=== PATIENT | female | born 1990 ===

== ENCOUNTER 2016-06-24 21:01 | Inpatient (IN) | payer BC, OTHER ==
[~2016-06-24] VITALS: Ht 175.3 cm; Wt 72.6 kg
--- NOTE | 2016-06-25 03:10 | NUR ---
0280 ADMISSION NOTE : 25 year old, well-nourished, caucasion female admitted ambulatory to room # 309, accompanied by staff [facility], who also gave patient a brief tour of [facility] floor. Patient's gait is fairly steady. Patient responded to nurse's greeting and introduction, with very slurred " Hello" and deep, head nodding movements. Patient's color is pale pink and her skin is warm, very slightly moist and intact. Multiple fresh and healing, various sizes and shades of pink, track sanz noted on inner and outer forearms and hands and inquinal areas. Patient's lung sounds are noted to have a few, fine, scattered wheezes bilateral lungs and active bowel sounds are noted X 4 soft abdominal Quads, per auscultation. Patient states that she doesn't remember just when she had a BM last, " maybe a week or so". Patient is oriented to person, place and her personal situation. Reoriented to day, date and time. Patient is 5 feet and 9 inches and she weighs 160 lbs. Patient denies any allergies or previous medical or psychiatric conditions, however she states that she is " seizure prone, and has a total of 8 seizures, the last seizure occurring " a few weeks ago in [place]. Patient denies any PCP. She states that she is not taking any medications at home and she did not bring any medications with her to [facility]. Vital signs are : 98.4-78-14 O2 Sat 98%, COWS 2. Patient is admitted for 1) Heroin, 2 grams daily IV, taken at this amount for the past year. Last heroin dose was on 06/24/16, 2 grams. Patient has been using heroin for the past 10 years, on/off. 2) Cocaine, 2 grams daily IV, taken at this amount for the past year. Last cocaine dose was on 06/24/16, 1 gram. Patient has been using cocaine for the past 12 years, on/off. 3) Xanax, 4 to 6 mg P.O. daily, taken at this amount for the past year. Last xanax dose was 06/24/16, 4 mg P.O.. Patient has been using xanax for the past 12 years on/off. 4) Ketamine, 1 gram IM, 4 to 5 days pet week. Last dose taken was on 06/24/16, 1/2 gram IM. Patient has been using ketamine for the past 8 years, on/off. Patient is extremely high, having just used these aforementioned drugs around 10 pm on 06/24/16. Patient must be frequently lightly shaken, prompted and aroused to be awake enough to answer admit questions. Admission assessment took significant amount of time, though patient did try to be cooperative, it was extremely difficult to for her to be alert and to keep her eyes open. Patient took some yoplait, juice and water sips, in effort to try and void, however patient was unable to do so. Patient oriented to her room and nurse call light. Bed is locked and in lowest position, padded bed rails are up X 2 and call light within patient's easy reach.
[2016-06-25 04:00] VITALS: BP 106/51
[2016-06-25] MEDS ORDERED: MAG HYDROX/AL HYDROX/SIMETH 30 ML LIQUID UDC PO PRN (05:15)
[2016-06-25] MEDS ORDERED: diphenhydrAMINE 50 MG CAPSULE PO PRN (05:15)
[2016-06-25] MEDS ORDERED: LOPERAMIDE HCL 2 MG CAPSULE PO PRN ×2 (05:15)
[2016-06-25] MEDS ORDERED: LORAZEPAM 2 MG/1 ML VIAL IM PRN (05:15)
[2016-06-25] MEDS ORDERED: DIAZEPAM 5 MG TABLET PO PRN (05:15)
[2016-06-25] MEDS ORDERED: HYDROXYZINE PAMOATE 25 MG CAPSULE PO PRN (05:15)
[2016-06-25] MEDS ORDERED: MAGNESIUM HYDROXIDE 30 ML LIQUID UDC PO PRN (05:15)
[2016-06-25] MEDS ORDERED: THIAMINE HCL 200 MG/2 ML VIAL IM ONE ×2 (05:15→09:00)
[2016-06-25] MEDS ORDERED: DICYCLOMINE HCL 20 MG TABLET PO PRN (05:15)
[2016-06-25] MEDS ORDERED: ONDANSETRON ODT 4 MG TAB.RAPDIS SL PRN (05:15)
[2016-06-25] MEDS ORDERED: ACETAMINOPHEN 325 MG TABLET PO PRN (05:15)
[2016-06-25] MEDS ORDERED: MIRALAX 17 GM POWD.PACK PO PRN (05:15)
[2016-06-25] MEDS ORDERED: PROMETHAZINE HCL 25 MG/1 ML VIAL IM PRN (05:15)
[2016-06-25] MEDS ORDERED: DIAZEPAM 10 MG TABLET PO PRN ×2 (05:15)
--- NOTE | 2016-06-25 06:30 | NUR ---
0630 Patient slept a total of 2.5 hours. Total intake was 400 ml p.o. and she has not voided yet since admission. No stools . No prn medications given. Patient is presently sleeping soundly with eyes closed and deep, regular, unlabored respirations noted at 14. V/S are stable and COWS is 2. Patient is in no obvious distress at this time.
--- NOTE | 2016-06-25 07:40 | NUR ---
START OF SHIFT Pt is a 25 yr old female, AA&Ox3, admitted on 06/25/16 for opiate/Benzo dependence and is on PRN's for s/s of w/d. Pt is full code, regular diet and NKA. Pt reports of Seizure hx. Pt is observed with increase anxiety m/b difficulty staying still. Pt is observed fidgety with fine tremors. Skin is intact, warm and moist to touch. Multiple track kleber are observed on BUE. Pt is c/o generalized pain 4/10 but is able to tolerate pain level at this time. Urine was collected for UDS and urine . Results are pending. Pt is on fall and seizure precautions. Bed kept in low position and locked with side rails up x2 Call light is within reach. Will continue to monitor.
[2016-06-25 08:00] VITALS: BP 98/40
[2016-06-25 08:28] LABS: *URINE HCG, QUAL NEGATIVE (NEGATIVE)
[2016-06-25 08:44] LABS: *AMPHETAMINE, URINE POSITIVE (NEGATIVE); *BARBITURATE, URINE NEGATIVE (NEGATIVE); *CANNABINOID, URINE POSITIVE (NEGATIVE); *COCCAINE, URINE POSITIVE (NEGATIVE); *OPIATE, URINE POSITIVE (NEGATIVE); *PHENCYCLIDINE SCREEN,URINE NEGATIVE (NEGATIVE)
[2016-06-25] MEDS: MULTIVITAMINS,THERAPEUTIC TABLET PO SCH (09:00)
[2016-06-25] MEDS: THIAMINE HCL 100 MG TABLET PO SCH (09:00)
[2016-06-25] MEDS ORDERED: MULTIVITAMINS,THERAPEUTIC TABLET PO SCH (09:00)
[2016-06-25] MEDS: FOLIC ACID 1 MG TABLET PO SCH (09:00)
--- NOTE | 2016-06-25 09:00 | NUR ---
MEDICATION REFUSED Pt refused to take all 0900 medication as scheduled. Pt was educated on medication regime but pt was unable to focus. Will continue to monitor.
[2016-06-25] MEDS ORDERED: TUBERCULIN,PURIF.PROT.DERIV. 5 TU/0.1 ML TEST ID ONE ×2 (09:30→13:00)
[2016-06-25 12:00] VITALS: BP 91/46
[2016-06-25] MEDS ORDERED: LORAZEPAM 1 MG TABLET PO PRN ×2 (12:15)
--- NOTE | 2016-06-25 14:20 | NUR ---
MD COMMUNICATION Pt is c/o muscle spasms and aching. Discussed with Dr. Evans with new order for Robaxin 750mg PO Q8HPRN. New order noted and carried out.
[2016-06-25] MEDS: METHOCARBAMOL 750 MG TABLET PO PRN (14:36)
[2016-06-25] MEDS: IBUPROFEN 400 MG TABLET PO PRN (14:36)
[2016-06-25] MEDS: GABAPENTIN 300 MG CAPSULE PO SCH ×2 (14:36→21:39)
--- NOTE | 2016-06-25 14:36 | NUR ---
PRN MEDICATION GIVEN Pt c/o generalized pain and muscle spasms. Robaxin 750mg PO PRN and Motrin 400mg PO PRN was given as ordered. Medication palmer well. Encouraged increase fluid intake. Will continue to monitor.
[2016-06-25 16:00] VITALS: BP 94/51
--- NOTE | 2016-06-25 16:46 | NUR ---
PRN RE-ASSESSMENT Robaxin PRN and Motrin PRN was effective. Pt denies any pain or discomfort at this time. Will continue to monitor.
[2016-06-25 17:47] LABS: ALANINE AMINOTRANSFERASE 14 U/L (14-59); ALBUMIN 3.3 g/dL (3.4-5.0); ALKALINE PHOSPHATASE 74 U/L (50-136); AMYLASE 27 U/L (25-115); ASPARTATE AMINOTRANSFERASE 12 U/L (15-37); BILIRUBIN,TOTAL 0.7 mg/dL (0.2-1.0); CALCIUM 8.6 mg/dL (8.5-10.1); CARBON DIOXIDE 31 mmol/L (21-32); CHLORIDE 104 mmol/L (98-107); GFR 67 mL/min (>60); GLUCOSE 90 mg/dL (74-106); LIPASE 133 U/L (73-393); MAGNESIUM 1.8 mg/dL (1.8-2.4); POTASSIUM 3.8 mmol/L (3.5-5.1); SODIUM SERUM 142 mmol/L (136-145); TOTAL PROTEIN, SERUM 7.4 g/dL (6.4-8.2); UREA NITROGEN, BLOOD 12 mg/dL (7-18)
[2016-06-25 17:55] LABS: BASOPHILS # (AUTO) 0.1 K/uL (0.0-0.2); BASOPHILS % (AUTO) 0.9 % (0.0-2.0); EOSINOPHILS # (AUTO) 0.4 K/uL (0.0-0.7); EOSINOPHILS % (AUTO) 4.7 % (0.0-7.0); HEMATOCRIT 32.4 % (37.0-47.0); HEMOGLOBIN 10.4 g/dL (12.0-16.0); LYMPHOCYTES # (AUTO) 3.3 K/uL (0.8-4.8); LYMPHOCYTES % (AUTO) 38.6 % (20.5-51.5); MEAN CORPUSCULAR HEMOGLOBIN 24.1 uug (27.0-31.0); MEAN CORPUSCULAR HGB CONC 32 g/dL (32.0-37.0); MEAN CORPUSCULAR VOLUME 75.2 fL (81.0-99.0); MONOCYTES # (AUTO) 0.7 K/uL (0.1-1.30); MONOCYTES % (AUTO) 8.2 % (0.0-11.0); NEUTROPHILS # (AUTO) 3.9 K/uL (1.8-8.9); NEUTROPHILS % (AUTO) 47.6 % (38.5-71.5); PLATELET COUNT (AUTO) 526 K/uL (150-450); RED BLOOD CELL COUNT(AUTO) 4.31 MIL/uL (4.20-5.40); RED CELL DISTRIBUTION WIDTH 15.1 % (11.5-14.5); WHITE BLOOD COUNT (AUTO) 8.4 K/uL (4.0-11.2)
[2016-06-25 17:58] LABS: THYROID STIMULATING HORMONE 0.861 mIU/mL (0.358-3.740)
[2016-06-25 18:10] LABS: ANISOCYTOSIS 1+; HYPOCHROMASIA 1+
[2016-06-25 18:18] LABS: ETHANOL < 3 MG/DL (0-0)
[2016-06-25 18:32] LABS: HIV-1 p24 ANTIGEN NON REACTIVE (NONREACTIVE); HIV-1/2 ANTIBODY NON REACTIVE (NONREACTIVE)
[2016-06-25] MEDS: BUPRENORPHINE HCL 2 MG TAB.SUBL SL PRN ×2 (18:52→22:53)
--- NOTE | 2016-06-25 18:53 | NUR ---
SUBUTEX PRN GIVEN Pt is observed with increase anxiety m/b difficulty staying still. Skin is warm and moist to touch. Fine tremors are seen. Pt is c/o abdominal cramping and generalized muscle aching. COWS score is 13. Subutex 4mg SL PRN was given as ordered. Encouraged increase fluid intake. Will continue to monitor.
--- NOTE | 2016-06-25 19:11 | NUR ---
END OF SHIFT Pt is a 25 yr old female, AA&Ox3, admitted on 06/25/16 for Opiate/Benzo dependence and is on PRN's for s/s of w/d. Pt is full code, regular diet and NKA. Pt reports of Seizure hx. Pt was observed with increase drowsiness during the afternoon. No acute distress noted. Prior to dinner, Pt woke up c/o anxiety and muscle aching. Robaxin PRN and Motrin PRN was given at 1436. Medication was effective. Pt is observed with increase anxiety m/b difficulty staying still at this time. Skin is warm and moist to touch. Fine tremors are seen. Pt is c/o abdominal cramping and generalized muscle aching. COWS score is 13 and CIWA score was 8. Subutex 4mg SL PRN was given at 1852. Endorsed to shift supervisor melting nurse to continue to monitor. Encouraged increase fluid intake. Pt is on fall and seizure precautions. Bed kept in low position and locked with side rails up x2 Call light is within reach.
[2016-06-25 20:00] VITALS: BP 107/61
--- NOTE | 2016-06-25 20:00 | NUR ---
1999 Patient received awake, alert and getting ready to go downstairs to [facility] for cigarette smoke. Patient has just returned to her room # 309 from [facility] in recreation room. Gait is steady. Patient's color is pale pink and her skin is warm, very slightly moist and intact. Various sized, various shades of pink, new-looking and healing, track and injection sanz and skin lumps noted on bilateral arms, bilateral groins, hands and right neck. Patient returns nurse's greeting with, " Hi, thank you for choosing me tonight". Patient is oriented to person, place, day and her personal situation. Reoriented to date and time. Patient's lung sounds have few, fine scattered wheezes noted bilaterally per auscultation. Patient moves all her extremities fully WNL. Patient states that she has been "trying to get used to everything here" and " do all I can that I'm supposed to". Patient states that she ate and took fluids ad audra today and she has had no real gastric issue so far. Vital signs are: 99-76-18 107/61 O2 sat 100%, COWS 5, CIWA 9. Patient states that she is 'not feeling great right now', but she denies need for any prn medication and feels well enough to go to [facility] to smoke and socialize with other patients. Patient's general appearance is disheveled and her mood/affect is overall emotionally labile. Patient was admitted on 06/25/16 for: Heroin, Cocaine, Xanax and Ketamine withdrawal and she is on Prn Ativan p.o. and Prn Subutex S.L for withdrawal symptoms and CIWA/COWS ordered pertinent parameters. Patient voices no requests at this time. Bed is locked and in lowest position, padded bed rails are up X 2 and call light on patient's bed.
[2016-06-25] MEDS: CLONIDINE HCL 0.1 MG TABLET PO PRN (21:50)
--- NOTE | 2016-06-25 21:50 | NUR ---
PRN MEDICATIONS : Prn Catapres 0.1 mg p.o. given for c/o withdrawal symptoms; hot/cold skin flashes, increasing anxiety and agitation. Prn Vistaril 50 mg p.o. given for extreme anxiety. Patient states, " I'm really starting to kick it".
--- NOTE | 2016-06-25 21:51 | NUR ---
PRN MEDICATION : Prn Ativan 1 mg p.o. given for c/o extreme anxiety, agitation, restless leg and generalized body movements. CIWA 9.
--- NOTE | 2016-06-25 22:50 | NUR ---
REASSESSMENT PRN MEDICATIONS : Patient awake and continuing to be restless, agitated and anxious, but only a little less so, since prn medications given at 2150 and 2150.
--- NOTE | 2016-06-25 22:53 | NUR ---
PRN MEDICATION : Prn Subutex 4 mg S.L. given for extremely restless behavior, agitation and shakey restless, near constant body tossing and turning, and c/o hot/cold skin flashes. COWS 12.
--- NOTE | 2016-06-25 23:53 | NUR ---
REASSESSMENT PRN MEDICATION: Patient awake and continues to toss, turn, be restless, anxious and agitated and periodically shouting out different, unintelligible noises. Nurse gave patient calm reassurances and encouraged patient to ventilate her feelings about whatever patient would like, and nurse then spent some presence time with patient. Patient became quieter after this period of approximately 30 minutes.
[2016-06-26] VITALS: BP 117/68
[2016-06-26] MEDS: IBUPROFEN 400 MG TABLET PO PRN (00:22)
--- NOTE | 2016-06-26 00:22 | NUR ---
PRN MEDICATIONS : Prn Ativan 2 mg p.o. given for c/o withdrawal symptoms; extreme restlessness, anxiety and agitation, restless body tossing and turning. CIWA 15. Prn Motrin 400 mg p.o. for c/o generalized body pain 8/10 pain scale. Prn Benadryl 50 mg p.o. given for sleep.
--- NOTE | 2016-06-26 01:22 | NUR ---
REASSESSMENT PRN MEDICATIONS : Patient remains awake and tossing and turning, anxious, shakey and somewhat agitated, and still shouting unintelligible noises at times. Patient denies any specific pain. She just says to nurse at times, " Well I use a lot, so I'm really kicking".
[2016-06-26 04:00] VITALS: BP 101/66
--- NOTE | 2016-06-26 06:30 | NUR ---
0630 Patient slept a total of 3 hours and she had 4 voids and no stools. Total intake was 1,200 ml p.o. Multiple prn medications given noted separately per floor protocol. V/SS afebrile, COWS 9, CIWA 12. Patient is presently sleeping with eyes closed and quiet, deep, even, unlabored respirations noted at 16. Patient is in no acute discomfort/distress at this time.
--- NOTE | 2016-06-26 07:40 | NUR ---
START OF SHIFT Pt is a 25 yr old female, AA&Ox3, admitted on 06/25/16 for opiate/Benzo dependence and is on PRN's for s/s of w/d. Pt is full code, regular diet and NKA. Pt reports of Seizure hx. Pt received multiple PRN's during the night for s/s of w/d. Medication was effective. Pt is currently in bed resting with respirations even and unlabored. Skin is intact, warm and moist. Pt is observed fidgety and restless legs. Encouraged increase fluid intake. Pt is on fall and seizure precautions. Bed kept in low position and locked with side rails up x2 Call light is within reach. Will continue to monitor.
[2016-06-26 08:00] VITALS: BP 115/66
[2016-06-26] MEDS ORDERED: 5 DAY TAPER BUPRENORPHINE -SERENITY PROTOCOL SL PRN (09:00)
[2016-06-26] MEDS ORDERED: TUBERCULIN,PURIF.PROT.DERIV. 5 TU/0.1 ML TEST ID ONE (09:00)
[2016-06-26] MEDS ORDERED: 5 DAY TAPER OF LORAZEPAM -SERENITY PROTOCOL PO PRN (09:00)
[2016-06-26] MEDS: LORAZEPAM 1 MG TABLET PO SCH ×4 (09:33→21:52)
[2016-06-26] MEDS: BUPRENORPHINE HCL 2 MG TAB.SUBL SL SCH ×4 (09:33→21:55)
[2016-06-26] MEDS: GABAPENTIN 300 MG CAPSULE PO SCH ×3 (09:33→21:52)
--- NOTE | 2016-06-26 09:33 | NUR ---
NSG NOTES Pt is observed with increase anxiety and agitation m/b difficulty staying still. Pt is c/o generalized pain and is observed with facial grimacing and moaning. Restless legs is observed. Pt is also c/o cold chill. COWS score was 17, CIWA score was 14. Ativan 2mg PO and Subutex 4mg SL as scheduled at 0900. Medication was palmer well. Safety precautions observed. Call light is within reach. Will continue to monitor.
[2016-06-26] MEDS: MULTIVITAMINS,THERAPEUTIC TABLET PO SCH (09:34)
[2016-06-26] MEDS: FOLIC ACID 1 MG TABLET PO SCH (09:34)
[2016-06-26] MEDS: THIAMINE HCL 100 MG TABLET PO SCH (09:34)
--- NOTE | 2016-06-26 11:31 | NUR ---
PHENERGAN PRN GIVEN During patient rounding, Pt was observed with episodes of vomiting x3. Phenergan 25mg IM PRN was given as ordered. Pt is noted with vomit on her leg and on the bed linens. Encouraged Pt to take a shower, while EVS have lines complete changed. Pt refused to take shower and went back to bed. Pt is observed fidgety and with restless legs. Attempted multiple times to take a shower. Pt was avoidant and refused to acknowledge scientific technical writer. Will continue to monitor.
[2016-06-26 12:00] VITALS: BP 110/69
--- NOTE | 2016-06-26 12:31 | NUR ---
PRN RE-ASSESSMENT Phenergan PRN was effective. Emesis ceased. Encouraged increase fluid intake. Pt continues to refuse to take a shower. Will continue to monitor.
[2016-06-26] MEDS: SCOPOLAMINE HYDROBROMIDE 1.5 MG PATCH TD SCH (15:18)
[2016-06-26 16:00] VITALS: BP 144/82
[2016-06-26] MEDS ORDERED: BUPRENORPHINE HCL 2 MG TAB.SUBL SL SCH (17:00)
--- NOTE | 2016-06-26 17:45 | NUR ---
MEDICATION HELD Ativan 2mg PO and Subutex 4mg SL at 1700 medication was held due to too sedative. Safety precautions is observed. Call light is within reach. Will continue to monitor.
--- NOTE | 2016-06-26 19:06 | NUR ---
END OF SHIFT Pt is a 25 yr old female, AA&Ox3, admitted on 06/25/16 for Opiate/Benzo dependence and is on 5 day Subutex and Ativan taper as ordered. Pt is full code, regular diet and NKA. Pt reports of Seizure hx. Pt has been observed with s/s of w/d during the day. Pt was observed with anxiety and agitation m/b difficulty staying still. Pt started on Ativan and Subutex taper as ordered. Medication palmer well. Pt was observed with episodes of vomiting x3. Phenergan 25mg IM PRN was given. Medication was effective. Dr. Evans was aware episodes of vomiting with new order for Scopolamine Patch. Patch was applied at 1518 behind right ear. Encouraged increase fluid intake. Pt was also encouraged to shower due to pt had an episode of emesis that landed on her leg. Pt refused to shower and went back to bed. Pt refused to eat all meals during the day. COWS score was 17 and CIWA score was 14 at 0800, by 1600 COWS score decreased to 2, and CIWA score was 2. Ativan and Subutex was held at 1700 due to too sedative. Pt is on fall and seizure precautions. Bed kept in low position and locked with side rails up x2 Call light is within reach.
--- NOTE | 2016-06-26 19:50 | NUR ---
START OF SHIFT NOTE Received report from day shift nurse. Pt is 25 y o female, admitted on 06/25/16 for heroin (2 g daily IV), xanax (4-6 mg 4-5 days a week PO), ketamine (1 g 4-5 days a week IM), cocaine (2 g daily IV). Pt placed on 5 day Subutex, 5 day Ativan tapers started on 06/26/16. Pt in bed, asleep, arousable to verbal stimuli. Pt oriented to name and place, disoriented to situation, date; pt reoriented, reinforced on safety precautions (call light use, keeping side rails up). Pupils PERRLA 2 mm; skin intact, warm, with minimal sweating. No tremors noted. Lung sounds clear, heart rate regular. Abdominal sounds present x4. Pt reported 1 episode on vomiting recently noted fresh emesis on bedding. Pt offered Phenergan prn IM or ODT Zofran , but pt refused, states I just dont want any injections, I dont believe anything will help, pt still reports nausea. Will attempt to offer antiemetics in 30 min. VS: temp 98.2, HR 83, RR 16, SpO2 95%, BP 118/70, pain 0/10. Pt full code, regular diet, NKA. Pt on fall and seizure precautions. Side rails up x 2, call light within reach, bed locked in lowest position. Will continue with plan of care
[2016-06-26 20:00] VITALS: BP 118/70
[2016-06-26] MEDS: ONDANSETRON ODT 4 MG TAB.RAPDIS SL PRN (20:47)
--- NOTE | 2016-06-26 20:47 | NUR ---
PRN BENTYL AND ZOFRAN Pt in bed, reports nausea. No new episodes of vomiting. Pt offered Bentyl and Zofran, pt agreed to take medications at this time. Given Zofran 6 mg ODT as ordered for nausea, and Bentyl 20 mg PO for stomach spasms. Fall and seizure precautions in place. Will continue to monitor.
--- NOTE | 2016-06-26 21:47 | NUR ---
REASSESSMENT Pt in bed, states nausea subsided. No vomiting noted. Fall/seizure precautions in place. Will continue to monitor
[2016-06-27] VITALS: BP 128/73
[2016-06-27 04:00] VITALS: BP 121/83
--- NOTE | 2016-06-27 07:30 | NUR ---
Start of Shift Report from night nurse: pt is 25 y.o female her for Opiates r/t Heroin 2g IV/d and Ketamine 1g IM/d, Benzo's r/t Xanax & 4-6mg/d Cocaine 2g IV/d; 5 day Ativan and 5 day Subutex taper ordered. Pt is a full code, regular diet , NKA, Fall and Seizure precautions ordered. HHx: multiple relapses, and seizures a few weeks ago r/t w/d's. Skin is not intact with multiple tracts on BUE's and BLE's. V/S stable. Last COWS 3 CIWA 3. Pt refused labs and is aware. Pt had multiple episodes of emesis with PRN Zofran, Bentyl given last night and was effective. Pt is in room asleep. Will cont. to monitor the pt.
--- NOTE | 2016-06-27 07:33 | NUR ---
END OF SHIFT NOTE Pt is 25 y o female, admitted on 06/25/16 for heroin (2 g daily IV), xanax (4-6 mg 4-5 days a week PO), ketamine (1 g 4-5 days a week IM), cocaine (2 g daily IV). Pt placed is on day 2 of 5 day Subutex, 5 day Ativan tapers started on 06/26/16. Pt presented with withdrawal s/s of sweats, tremors, yawning, nausea, one episode of vomiting. Pt was given 6mg of Zofran ODT and 20 mg of Bentyl PO at 2046, medications were effective; pt denies nausea throughout the shift, was able to tolerate 600 ml PO fluids. Pt received all scheduled medications, was effective for withdrawal s/s management aeb last COWS 3, last CIWA 3 at 0400. VSS, BP 121/83, HR 78 at 0400. Pt slept for 12 hrs. Pt full code, regular diet, NKA. Pt on fall and seizure precautions. Report endorsed to day shift nurse.
[2016-06-27 08:00] VITALS: BP 132/83
[2016-06-27 08:25] LABS: IRON, SERUM 38 ug/dL (50-175)
[2016-06-27 08:37] LABS: FERRITIN 70 ng/mL (8-252)
[2016-06-27] MEDS: BUPRENORPHINE HCL 2 MG TAB.SUBL SL SCH ×3 (10:10→21:28)
[2016-06-27] MEDS: MULTIVITAMINS,THERAPEUTIC TABLET PO SCH (10:10)
[2016-06-27] MEDS: GABAPENTIN 300 MG CAPSULE PO SCH ×3 (10:11→21:19)
[2016-06-27] MEDS: LORAZEPAM 1 MG TABLET PO SCH ×3 (10:11→21:19)
[2016-06-27] MEDS: FOLIC ACID 1 MG TABLET PO SCH (10:11)
[2016-06-27] MEDS: THIAMINE HCL 100 MG TABLET PO SCH (10:11)
[2016-06-27 12:00] VITALS: BP 123/70
[2016-06-27 13:29] LABS: HCV AB 0.1 s/co ratio (0.0-0.9); HEPATITIS B CORE AB, IgM Negative (Negative); HEPATITIS B SURFACE AG Negative (Negative)
[2016-06-27 16:00] VITALS: BP 120/76
[2016-06-27] MEDS ORDERED: FERROUS SULFATE 325 MG TABEC PO SCH (17:00)
--- NOTE | 2016-06-27 18:15 | NUR ---
Start of Shift Report from night nurse: pt is 25 y.o female her for Opiates r/t Heroin 2g IV/d and Ketamine 1g IM/d, Benzo's r/t Xanax & 4-6mg/d Cocaine 2g IV/d; 5 day Ativan and 5 day Subutex taper ordered. Pt is a full code, regular diet , NKA, Fall and Seizure precautions ordered. HHx: multiple relapses, and seizures a few weeks ago r/t w/d's. Skin is not intact with multiple tracts on BUE's and BLE's. V/S stable. Last COWS 3 CIWA 3. Pt refused labs and is aware. Pt had multiple episodes of emesis with PRN Zofran, Bentyl given last night and was effective. Pt is in room asleep. Will cont. to monitor the pt. Addendum: 06/28/16 at 1426 by SID CANALES RN Time error
--- NOTE | 2016-06-27 19:22 | NUR ---
End of Shift Report to night nurse: pt is 25 y.o female her for Opiates r/t Heroin 2g IV/d and Ketamine 1g IM/d, Benzo's r/t Xanax & 4-6mg/d Cocaine 2g IV/d; 5 day Ativan and 5 day Subutex taper ordered. Pt is a full code, regular diet , NKA, Fall and Seizure precautions ordered. HHx: multiple relapses, and seizures a few weeks ago r/t w/d's. Skin is not intact with multiple tracts on BUE's and BLE's. V/S stable. Last COWS 0 CIWA 0 and deferred with HELD 1500H medications of Subutex 4mg, Ativan 2mg and Gabapentin 600mg since pt remained asleep since 1400H and woke up at 1850pm. Labs done and is aware with new orders for Fe2+ supplement. No PRN medications given during my shift. Pt did not attend group therapy or activities during my shift.
[2016-06-27 20:00] VITALS: BP 109/73
--- NOTE | 2016-06-27 20:00 | NUR ---
Start of Shift Pt is a 25 year old female admitted on 06/25/2016 for Opiate/Benzo Dependence, placed on 5 day Ativan and 5 day Subutex taper. Pt reported using Heroin IV 2g/daily, Xanax 4-6mg 4-5 days a week PO, Cocaine IV 2/g daily and Ketamine IM 1gm 4-5 days a week. PMH: Pt denies any medical or Psych history. NKA, regular diet, fall/seizure precautions Pt states that she has had 8 seizures total, last seizure, A few weeks ago. Full code. Upon assessment, pt reports mild anxiety, tremors felt upon touch, sweaty/clammy skin, reported bone/joint aches, chills/flushing, stomach cramps and moist eyes/runny nose noted. Respirations even and unlabored, denies SOB/chest pain, bowel sounds active x4, abdomen soft. At 2000, COWS 9 & CIWA 6. Scheduled medications to be administered, Safety measures in place, call light within reach, side rails up x2, bed locked and in low position. Will continue to monitor.
[2016-06-27] MEDS: HYDROXYZINE PAMOATE 25 MG CAPSULE PO SCH (21:19)
[2016-06-27] MEDS: DICYCLOMINE HCL 20 MG TABLET PO SCH (21:20)
[2016-06-27] MEDS: FERROUS SULFATE 325 MG TABEC PO SCH (21:37)
[2016-06-28] VITALS: BP 109/71
--- NOTE | 2016-06-28 | NUR ---
Vital Signs BP 109/71, Pulse 61, respirations 14, Spo2 100%, temp 97.9 and 0/10 pain. COWS/CIWA assessment deferred d/t pt sleeping - to assess while pt is awake as ordered. Pt is sleeping, no s/s of distress noted, respirations even and unlabored. Safety measures in place, call light within reach, side rails up x2, bed locked and in low position. Will continue to monitor.
--- NOTE | 2016-06-28 04:00 | NUR ---
Pt refused to be woken for 0400 VS COWS/CIWA assessment deferred d/t pt sleeping - to assess while pt is a wake as ordered. Pt is sleeping, no s/s of distress noted, respirations even and unlabored. Safety measures in place, call light within reach, side rails up x2, bed locked and in low position. Will continue to monitor.
[2016-06-28] MEDS: CLONIDINE HCL 0.1 MG TABLET PO PRN (05:35)
[2016-06-28] MEDS: METHOCARBAMOL 750 MG TABLET PO PRN ×2 (05:35→12:42)
--- NOTE | 2016-06-28 05:35 | NUR ---
PRN Administration Upon awakening, pt reported anxiety, chills, presented with facial flushing, sweaty/clammy skin noted, increased agitation, muscle/joint aches. Clonidine 0.1mg PRN and Robaxin 750mg PRN administered. Safety measures in place, call light within reach, side rails up x2, bed locked and in low position. Will continue to monitor.
--- NOTE | 2016-06-28 06:36 | NUR ---
PRN Reassessment Upon reassessment, pt is resting, eyes closed, respirations even and unlabored, no s/s of distress noted. Safety measures in place, call light within reach, side rails up x2, bed locked and in low position. Will continue to monitor.
--- NOTE | 2016-06-28 07:00 | NUR ---
End of Shift Pt is a 25 year old female admitted on 06/25/2016 for Opiate/Benzo Dependence, placed on 5 day Ativan and 5 day Subutex taper. Pt reported using Heroin IV 2g/daily, Xanax 4-6mg 4-5 days a week PO, Cocaine IV 2/g daily and Ketamine IM 1gm 4-5 days a week. PMH: Pt denies any medical or Psych history. NKA, regular diet, fall/seizure precautions Pt states that she has had 8 seizures total, last seizure, A few weeks ago. Full code. During shift, pt presented with mild anxiety, tremors felt upon touch, sweaty/clammy skin, reported bone/joint aches, chills/flushing, stomach cramps and moist eyes/runny nose, scheduled taper medications administered, CIWA 6, COWS 9. Clonidine 0.1mg PRN and Robaxin 750mg PRN administered. VS stable, Pt slept for 6 hours, intake of 592 ml PO and voids x2. Safety measures in place, call light within reach, side rails up x2, bed locked and in low position. Endorsed to day shift nurse.
--- NOTE | 2016-06-28 07:15 | NUR ---
Start of Shift Report from night nurse: pt is 25 y.o female her for Opiates r/t Heroin 2g IV/d and Ketamine 1g IM/d, Benzo's r/t Xanax & 4-6mg/d Cocaine 2g IV/d; 5 day Ativan and 5 day Subutex taper ordered. Pt is a full code, regular diet , NKA, Fall and Seizure precautions ordered. HHx: multiple relapses, and seizures a few weeks ago r/t w/d's. Skin is not intact with multiple tracts on BUE's and BLE's. V/S stable. No Vomiting noted last night. PRN Robaxin and Clonidine 0.1mg given. Last COWS 9 CIWA 6. Pt is in room asleep. Will cont. to monitor the pt.
[2016-06-28 08:00] VITALS: BP 104/67
[2016-06-28] MEDS ORDERED: BUPRENORPHINE HCL 2 MG TAB.SUBL SL SCH (09:00)
[2016-06-28] MEDS: THIAMINE HCL 100 MG TABLET PO SCH (09:59)
[2016-06-28] MEDS: GABAPENTIN 300 MG CAPSULE PO SCH ×3 (10:00→20:48)
[2016-06-28] MEDS: MULTIVITAMINS,THERAPEUTIC TABLET PO SCH (10:01)
[2016-06-28] MEDS: HYDROXYZINE PAMOATE 25 MG CAPSULE PO SCH ×3 (10:01→20:47)
[2016-06-28] MEDS: LORAZEPAM 1 MG TABLET PO SCH ×4 (10:01→20:48)
[2016-06-28] MEDS: FERROUS SULFATE 325 MG TABEC PO SCH ×3 (10:01→17:41)
[2016-06-28] MEDS: FOLIC ACID 1 MG TABLET PO SCH (10:02)
[2016-06-28] MEDS: DICYCLOMINE HCL 20 MG TABLET PO SCH ×3 (10:02→20:48)
[2016-06-28 12:00] VITALS: BP 98/68
--- NOTE | 2016-06-28 12:45 | NUR ---
PRN Medication Administration Pt c/o mild nausea and generalized muscle tension; PRN Zofran 6mg SL and Robaxin 750mg given as ordered. Will reassess in 1H.
[2016-06-28] MEDS: ONDANSETRON ODT 4 MG TAB.RAPDIS SL PRN (12:49)
--- NOTE | 2016-06-28 13:45 | NUR ---
Reassessment Pt denies Nausea and relief of muscle tension; Zofran and Robaxin is effective. Will cont. to monitor the pt.
[2016-06-28 16:00] VITALS: BP 113/61
[2016-06-28] MEDS: BUPRENORPHINE HCL 2 MG TAB.SUBL SL SCH ×2 (17:41→20:48)
--- NOTE | 2016-06-28 17:55 | NUR ---
Late Medication Administration Pt was asleep in room during the 1500H of medication admiration so it was given yasmeen after pt was awake for dinner.
--- NOTE | 2016-06-28 19:53 | NUR ---
End of Shift Report to night nurse: pt is 25 y.o female her for Opiates r/t Heroin 2g IV/d and Ketamine 1g IM/d, Benzo's r/t Xanax & 4-6mg/d Cocaine 2g IV/d; 5 day Ativan and 5 day Subutex taper ordered. Pt is a full code, regular diet, NKA, Fall and Seizure precautions ordered. HHx: multiple relapses, and seizures a few weeks ago r/t w/d's. Skin is not intact with multiple tracts on BUE's and BLE's. V/S stable. Last COWS 3 CIWA 4. PRN Zofran 6mg SL for nausea only, no vomiting and Robaxin 750mg given. No new orders during my shift.
[2016-06-28 20:00] VITALS: BP 105/69
--- NOTE | 2016-06-28 20:00 | NUR ---
Start of Shift Pt is a 25 year old female admitted on 06/25/2016 for Opiate/Benzo Dependence, placed on 5 day Ativan and 5 day Subutex taper. Pt reported using Heroin IV 2g/daily, Xanax 4-6mg 4-5 days a week PO, Cocaine IV 2/g daily and Ketamine IM 1gm 4-5 days a week. PMH: Pt denies any medical or Psych history. NKA, regular diet, fall/seizure precautions Pt states that she has had 8 seizures total, last seizure, A few weeks ago. Full code. Upon assessment, tremors felt upon touch, reports muscle aches and sweaty/clammy skin noted. Respirations even and unlabored, denies SOB/chest pain, bowel sounds active x4, abdomen soft. Safety measures in place, call light within reach, side rails up x2, bed locked and in low position. Will continue to monitor.
[2016-06-29] VITALS: BP 109/62
--- NOTE | 2016-06-29 | NUR ---
Vital Signs BP 109/62, Pulse 79, respirations 14, Spo2 99%, temp 98 and 0/10 pain. COWS/CIWA assessment deferred d/t pt sleeping - to assess while pt is awake as ordered. Pt is sleeping, no s/s of distress noted, respirations even and unlabored. Safety measures in place, call light within reach, side rails up x2, bed locked and in low position. Will continue to monitor.
--- NOTE | 2016-06-29 07:00 | NUR ---
End of Shift Pt is a 25 year old female admitted on 06/25/2016 for Opiate/Benzo Dependence, placed on 5 day Ativan and 5 day Subutex taper. Pt reported using Heroin IV 2g/daily, Xanax 4-6mg 4-5 days a week PO, Cocaine IV 2/g daily and Ketamine IM 1gm 4-5 days a week. PMH: Pt denies any medical or Psych history. NKA, regular diet, fall/seizure precautions Pt states that she has had 8 seizures total, last seizure, A few weeks ago. Full code. During shift, tremors felt upon touch, reported muscle aches and sweaty/clammy skin noted. Scheduled medications administered, effective in management of s/s of withdrawal as reported by pt, COWS 3, CIWA 4. No PRN medications administered. VS stable, Pt slept for 5 hours, intake of 2296 ml PO and voids x2. Safety measures in place, call light within reach, side rails up x2, bed locked and in low position. Endorsed to day shift nurse.
[2016-06-29 08:00] VITALS: BP 102/60
--- NOTE | 2016-06-29 08:05 | NUR ---
START OF SHIFT: RECEIVED PT A/O X4. SHE PRESENTS WITH ANXIOUS MOOD AND CONGRUENT WITH AFFECT. PT IS DISHEVELED. SHE REPORTS CHILLS,SWEATS,BODY ACHES, ANXIETY AND RESTLESSNESS. ATIVAN/SUBUTEX TAPER IN PROGRESS. COWS 5 CIWA 4. SHE STATES SHE WILL ATTEND GROUPS TODAY. ENCOURAGED INCREASED FLUIDS TO ASSIST IN FACILITATING DETOX PROCESS.WILL CONTINUE TO MONITOR AND PROVIDE SAFE AND SUPPORTIVE ENVIRONMENT.
[2016-06-29] MEDS: GABAPENTIN 300 MG CAPSULE PO SCH ×3 (09:42→21:49)
[2016-06-29] MEDS: BUPRENORPHINE HCL 2 MG TAB.SUBL SL SCH ×3 (09:43→21:49)
[2016-06-29] MEDS: THIAMINE HCL 100 MG TABLET PO SCH (09:43)
[2016-06-29] MEDS: FOLIC ACID 1 MG TABLET PO SCH (09:43)
[2016-06-29] MEDS: HYDROXYZINE PAMOATE 25 MG CAPSULE PO SCH ×3 (09:43→21:49)
[2016-06-29] MEDS: MULTIVITAMINS,THERAPEUTIC TABLET PO SCH (09:43)
[2016-06-29] MEDS: DICYCLOMINE HCL 20 MG TABLET PO SCH ×3 (09:44→21:49)
[2016-06-29] MEDS: FERROUS SULFATE 325 MG TABEC PO SCH ×3 (09:44→17:13)
[2016-06-29] MEDS: LORAZEPAM 1 MG TABLET PO SCH ×3 (09:44→21:48)
[2016-06-29 12:00] VITALS: BP 107/60
[2016-06-29] MEDS: SCOPOLAMINE HYDROBROMIDE 1.5 MG PATCH TD SCH (14:14)
[2016-06-29 16:00] VITALS: BP 107/60
--- NOTE | 2016-06-29 19:19 | NUR ---
END OF SHIFT: PT CONTINUES ON SUBUTEX/ATIVAN TAPER. SHE C/O BODY ACHES CHILLS SWEATS AND ANXIETY THIS AM. SHE STATES DETOX MEDS ARE EFFECTIVE.LAST COWS 4 CIWA 1. SHE IS ATTENDING GROUPS AND ACTIVITIES. SHE INTERACTS WITH PEERS. NO PRNS GIVEN. WILL PASS SHIFT REPORT TO ONCOMING NIGHT NURSE.
[2016-06-29 20:00] VITALS: BP 98/63
--- NOTE | 2016-06-29 20:00 | NUR ---
START OF SHIFT NOTE: REPORT RECEIVED FROM DAY SHIFT NURSE. PT IS A 25 YO FEMALE ADMITTED ON 06/25/16 FOR BENZODIAZEPINE AND OPIATE DEPENDENCE. PT REPORTS USING 2GM IV HEROIN DAILY FOR 10 YEARS AND TAKING 4-6MG XANAX 4-5 DAYS/WEEK. PT ALSO REPORTS DAILY USE OF IV COCAINE AND KETAMINE 4-5 TIMES/WEEK. PT RECEIVED WITH LAST DAY SHIFT COWS=4, CIWA=1. PT IS ON DAY 4 OF 5-DAY ATIVAN AND SUBUTEX TAPERS. PT IS A FULL CODE. VTE SCORE IS 0. PT IS ON A REGULAR DIET. PT SKIN IS INTACT. PT REPORTS NKDA/NKFA. PT DENIES ANY PMHX. PT IS A&OX4 AND AMBULATORY WITH STEADY GAIT. BOWEL SOUNDS PRESENT IN ALL QUADRANTS. LUNGS CTA THROUGHOUT. VS AT START OF SHIFT ASSESSMENT: 97.5, 102, 18, 98%, 95/63. WITHDRAWAL SYMPTOMS NOTED/REPORTED: ANXIETY, ELEVATED HR, GENERALIZED PAIN. COWS IS 5, CIWA IS 2. BED IS IN LOW POSITION AND LOCKED, SIDE RAILS UP X2, CALL LIGHT WITHIN REACH. ALL NEEDS ATTENDED AND MET. WILL CONTINUE TO MONITOR.
--- NOTE | 2016-06-29 21:12 | NUR ---
MD COMMUNICATION: PT REQUESTS MEDICATION FOR INSOMNIA. PT REPORTS TAKING SEROQUEL 100MG PO QHS. DR NOBLES CONTACTED AND NEW ORDER RECEIVED, ORDER NOTED AND CARRIED OUT.
[2016-06-29] MEDS: METHOCARBAMOL 750 MG TABLET PO PRN (21:48)
[2016-06-29] MEDS: IBUPROFEN 400 MG TABLET PO PRN (21:49)
--- NOTE | 2016-06-29 21:49 | NUR ---
PRN MOTRIN, PRN ROBAXIN: PT C/O GENERALIZED BODY AND JOINT PAIN WITH MYALGIA. PT RATES PAIN 7/10. ADMINISTERED PRN MOTRIN AND PRN ROBAXIN ORDERED. WILL CONTINUE TO MONITOR.
[2016-06-29] MEDS ORDERED: QUETIAPINE FUMARATE 100 MG TABLET ONE (21:54)
--- NOTE | 2016-06-29 21:55 | NUR ---
REASSESSMENT: PT REPORTS THAT PRN MOTRIN AND PRN ROBAXIN WERE EFFECTIVE. WILL CONTINUE TO MONITOR.
[2016-06-29] MEDS: QUETIAPINE FUMARATE 100 MG TABLET PO SCH (22:55)
--- NOTE | 2016-06-29 22:56 | NUR ---
SEROQUEL HS LATE: PT STATES THAT SHE DOES NOT WANT TO TAKE SEROQUEL AT 21:00 BECAUSE SHE IS NOT READY TO GO TO SLEEP. SCHEDULED 21:00 SEROQUEL ADMINISTERED LATE.
--- NOTE | 2016-06-30 | NUR ---
VITALS & COWS/CIWA REFUSED: PT REFUSES ORDERED 00:00 VITALS AND COWS/CIWA ASSESSMENTS FOR SLEEP. PT EDUCATED ON RISKS AND BENEFITS. ALL SAFETY PRECAUTIONS ARE IN PLACE. WILL CONTINUE TO MONITOR. Addendum: 06/30/16 at 0056 by OG REGALADO RN Amended: Links added.
--- NOTE | 2016-06-30 04:00 | NUR ---
VITALS/COWS/CIWA REFUSED: PT REFUSES VITALS AND COWS/CIWA FOR SLEEP. PT EDUCATED ON RISKS AND BENEFITS. ALL SAFETY PRECAUTIONS ARE IN PLACE. WILL CONTINUE TO MONITOR. Addendum: 06/30/16 at 0409 by OG REGALADO RN Amended: Links added.
--- NOTE | 2016-06-30 07:10 | NUR ---
END OF SHIFT NOTE: PT IS A 25 YO FEMALE ADMITTED TO [facility] ON 06/25/16 FOR MEDICALLY SUPERVISED WITHDRAWAL FROM BENZODIAZEPINES AND OPIATES. PT REPORTS USING 2GM IV HEROIN DAILY FOR 10 YEARS AND TAKING 4-6MG XANAX 4-5 DAYS/WEEK. PT ALSO REPORTS DAILY USE OF IV COCAINE AND KETAMINE 4-5 TIMES/WEEK. PT IS TO START DAY 5 OF 5-DAY ATIVAN AND SUBUTEX TAPERS. PT REPORTS NKDA/NKFA. PT IS A FULL CODE. VTE SCORE IS 0. PT IS ON A REGULAR DIET. PT SKIN IS INTACT. PT DENIES ANY PMHX. PT REMAINED A&OX4 DURING SHIFT WITH VSS, HR HIGH AT 102. LAST COWS= 5, CIWA=2 AT 20:00. SCHEDULED TAPER MEDICATIONS MANAGED WITHDRAWAL SYMPTOMS, IN ADDITION TO PRN MOTRIN FOR PAIN AND PRN ROBAXIN FOR MYALGIA. TOTAL FLUID INTAKE THIS SHIFT: 2053 ML; TOTAL OUTPUT: URINE X 1, BM X 1. PT IS CURRENTLY IN BED AND SLEPT FOR 5 HOURS THIS SHIFT. BED IS IN LOW POSITION AND LOCKED, SIDE RAILS UP X2, CALL LIGHT WITHIN REACH. ALL NEEDS ATTENDED AND MET. PT ENDORSED TO DAY SHIFT NURSE.
--- NOTE | 2016-06-30 07:41 | NUR ---
BEGINNING OF SHIFT Patient endorsement report received from welder 2nd shift nurse, all pertinent information discussed. Patient is a 25 year old Female admitted on 06/25/2016 with admitting Dx: Opiate/bzo dependence. Patient denies any past medical history. Patient with substance use history of: heroin 2 grams iv daily on/off for 10 years, cocaine 2 grams daily iv on/off for 12 years, Xanax 4-6mg 4 to 5 days per pweek on/off for 12 years, and ketamine 1 gram 4 to 5 days per week IM on/off for 8 years. Patient currently with ongoing 5 day Ativan and Subutex taper as ordered, and is currently on day 5 of taper, will monitor closely. As per welder 2nd shift patient slept for 5 hours, and received PRN: Motrin and Robaxin as per welder 2nd shift, medications were effective. Patients last ciwa score of: 2 and last cow score of: 5. Patient received in bed with eyes closed respirations are even and unlabored. Responsive to verbal stimuli, educated regarding plan of care for the day and medication regimen, safety measures in place, call light with in reach, will continue to monitor closely.
[2016-06-30 08:05] VITALS: BP 100/62
[2016-06-30] MEDS: MULTIVITAMINS,THERAPEUTIC TABLET PO SCH (08:38)
[2016-06-30] MEDS: THIAMINE HCL 100 MG TABLET PO SCH (08:39)
[2016-06-30] MEDS: LORAZEPAM 1 MG TABLET PO SCH ×2 (08:39→20:53)
[2016-06-30] MEDS: FOLIC ACID 1 MG TABLET PO SCH (08:39)
[2016-06-30] MEDS: DICYCLOMINE HCL 20 MG TABLET PO SCH ×3 (08:39→20:53)
[2016-06-30] MEDS: GABAPENTIN 300 MG CAPSULE PO SCH ×3 (08:39→20:53)
[2016-06-30] MEDS: HYDROXYZINE PAMOATE 25 MG CAPSULE PO SCH ×3 (08:39→20:53)
[2016-06-30] MEDS: FERROUS SULFATE 325 MG TABEC PO SCH ×3 (08:39→16:57)
[2016-06-30] MEDS ORDERED: BUPRENORPHINE HCL 2 MG TAB.SUBL SL SCH (09:00)
[2016-06-30 13:06] VITALS: BP 112/78
[2016-06-30 17:44] VITALS: BP 101/60
--- NOTE | 2016-06-30 19:10 | NUR ---
END OF SHIFT Patient alert and oriented x4, compliant with therapeutic plan of care. Patient with admitting Dx: opiate/bzo/ dependence, Patient received last dose of Subutex taper as ordered, and continues on last day of Ativan taper as ordered, well tolerated, no ASE noted, continues under close observation.,Patient encouraged adequate PO fluid intake as tolerated,. 0900 assessment patient presented with heart rate of 96, mild bone and joint aches, c/o chills, anxiety and barely sweating with cow score of: 5 and ciwa score of: 4; 1300 assessment patient presented with: heart rate of 95 c/o chills and anxiety with cow score of: 3 and ciwa score of: 3; 1700 assessment patient presented with: heart rate of 95 c/o chills and anxiety with cow score of: 3 and ciwa score of: 3 encouraged patient to attend group therapies/sessions to learn new coping skills to prevent relapse, patient denies SI/HI. During shift administered no PRNs, Safety measures in place. Call light with in reach, will continue to monitor closely. Patient endorsement report given to return checker nurse, all pertinent information discussed.
--- NOTE | 2016-06-30 19:10 | NUR ---
Start of Shift Patient Received. Patient in activities room participating in group activities. Patient is a 25 year old female, admitted on 06/25/16 for Opiate and Benzo Dependence, under the care of Dr. Evans. Patient was placed on both Subutex and Ativan Tapers. Patient verbalizes no known allergies, wishes to be full code, following a regular diet, skin noted with tract kleber history, placed on both fall and seizure precautions. Patient denies past medical history. Per endorsement, patients last CIWA-3 and COWS -3. No PRN medications administered. All needs attended to promptly. Will continue plan of care as ordered.
[2016-06-30 20:36] VITALS: BP 128/71
[2016-06-30] MEDS: QUETIAPINE FUMARATE 100 MG TABLET PO SCH (20:53)
[2016-06-30] MEDS: METHOCARBAMOL 750 MG TABLET PO PRN (20:53)
[2016-06-30] MEDS ORDERED: QUETIAPINE FUMARATE 100 MG TABLET PO SCH (21:00)
--- NOTE | 2016-06-30 21:00 | NUR ---
PRN Medication Administration Patient verbalized increased back spasms. PRN Robaxin given with routine medications. Patient able to tolerate well. Will continue to monitor.
--- NOTE | 2016-06-30 23:00 | NUR ---
PRN Medication Reassessment patient given PRN Robaxin for increase back spasms. Patient able to verbalize that PRN medication was effective and spasms had subsided. Will continue to monitor.
--- NOTE | 2016-07-01 00:14 | NUR ---
Vitals, CIWA, and COWS Patient Refused 0000 vitals prior to bed. Patient states "I would like to sleep please." Patient noted in bed sleeping. Breathing even and non labored. No signs of pain or discomfort noted. Patients respirations noted at 14. CIWA and COWS not able to be completed as per order. Will continue to monitor. Addendum: 07/01/16 at 0015 by JETHRO CORDOVA LVN Amended: Links added.
--- NOTE | 2016-07-01 04:07 | NUR ---
Vitals, CIWA, and COWS Patient Refused 0000 vitals prior to bed. Patient states "I would like to sleep please." Patient noted in bed sleeping. Breathing even and non labored. No signs of pain or discomfort noted. Patients respirations noted at 14. CIWA and COWS not able to be completed as per order. Will continue to monitor. Addendum: 07/01/16 at 0409 by JETHRO CORDOVA LVN Amended: Links added. Addendum: 07/01/16 at 0411 by JETHRO CORDOVA LVN Correction: patient refused 0 vitals prior to bed.
--- NOTE | 2016-07-01 07:06 | NUR ---
End of Shift Patient is in bed sleeping. Breathing even and non labored. No signs of pain or discomfort noted. Patient is a 25 year old female, admitted on 06/25/16 for Opiate and Benzo Dependence, under the care of Dr. Evans. Patient was placed on both Subutex and Ativan Tapers. Patient verbalizes no known allergies, wishes to be full code, following a regular diet, skin noted with tract kleber history, placed on both fall and seizure precautions. Patient denies past medical history. Patients last CIWA-3 and COWS -4. PRN Robaxin given and noted to be effective. All needs attended to promptly. Will continue plan of care as ordered.
--- NOTE | 2016-07-01 07:28 | NUR ---
BEGINNING OF SHIFT Patient endorsement report received from regenerator operator nurse, all pertinent information discussed. Patient is a 25 year old Female admitted on 06/25/2016 with admitting Dx: Opiate/bzo dependence. Patient denies any past medical history. Patient with substance use history of: heroin 2 grams iv daily on/off for 10 years, cocaine 2 grams daily iv on/off for 12 years, Xanax 4-6mg 4 to 5 days per pweek on/off for 12 years, and ketamine 1 gram 4 to 5 days per week IM on/off for 8 years. Patient completed subutex and ativan taper as ordered, will monitor closely. As per regenerator operator patient slept for 5 hours, and received PRN: Robaxin as per regenerator operator, medications were effective. Patients last ciwa score of: 3 and last cow score of: 4. Patient received in bed with eyes closed respirations are even and unlabored. Responsive to verbal stimuli, educated regarding plan of care for the day and medication regimen, safety measures in place, call light with in reach, will continue to monitor closely.
[2016-07-01 08:53] VITALS: BP 113/61
[2016-07-01] MEDS: GABAPENTIN 300 MG CAPSULE PO SCH ×3 (08:58→21:39)
[2016-07-01] MEDS: FERROUS SULFATE 325 MG TABEC PO SCH ×3 (08:58→16:53)
[2016-07-01] MEDS: MULTIVITAMINS,THERAPEUTIC TABLET PO SCH (08:58)
[2016-07-01] MEDS: DICYCLOMINE HCL 20 MG TABLET PO SCH ×3 (08:58→21:39)
[2016-07-01] MEDS: THIAMINE HCL 100 MG TABLET PO SCH (08:58)
[2016-07-01] MEDS: FOLIC ACID 1 MG TABLET PO SCH (08:58)
[2016-07-01] MEDS: HYDROXYZINE PAMOATE 25 MG CAPSULE PO SCH ×2 (08:58→14:11)
[2016-07-01] MEDS ORDERED: SULFAMETH/TRIMETH 800/160 MG TABLET PO ONE (13:00)
--- NOTE | 2016-07-01 13:00 | NUR ---
MD COMMUNICATION/CELLULINS TO LEFT INNER THIGH/ATB Patient noted with redness to left inner thigh noted warm to touch and tender, patient was assessed by MD as per MD patient has cellulitis, will start patient on ATB therapy, patient was notified of plan of care, encouraged to increase PO fluid intake as tolerated, patient afebrile, First dose administered as ordered, will continue to monitor closely.
[2016-07-01 13:28] VITALS: BP 124/76
[2016-07-01] MEDS: CLONIDINE HCL 0.1 MG TABLET PO PRN (14:57)
--- NOTE | 2016-07-01 14:57 | NUR ---
PRN CLONIDINE Patient reported increase in anxiety, provided with non pharmacological interventions with no relief, administered clonidine 0.1mg Po as ordered, will monitor effectiveness.
--- NOTE | 2016-07-01 15:57 | NUR ---
CLONIDINE REASSESSMENT Patient reports medication with relief, feels less anxious.
[2016-07-01 17:45] VITALS: BP 115/74
--- NOTE | 2016-07-01 18:26 | NUR ---
END OF SHIFT Patient alert and oriented x4, compliant with therapeutic plan of care. Patient with admitting Dx: opiate/bzo/ dependence, Patient completed Subutex and Ativan taper as ordered,well tolerated, no ASE noted, continues under close observation.,Patient encouraged adequate PO fluid intake as tolerated,. 0900 assessment patient presented with mild bone and joint aches, and mild anxiety with cow score of: 2 and ciwa score of: 1, 1300 assessment patient presented with mild anxiety with cow score of: 1 and ciwa score of: 1; 1700 assessment patient presented with mild anxiety with cow score of: 0 and ciwa score of: 0. During shift patient was started on ATB therapy for cellulitis of left inner thigh, administered first dose as ordered, well tolerated, encouraged patient increase in PO fluid intake as tolerated, patient afebrile throughout shift, encouraged patient to attend group therapies/sessions to learn new coping skills to prevent relapse noted attending and participating, patient denies SI/HI. During shift administered PRN: clonidine at 1457 for anxiety, medication effective one hour post administration. Safety measures in place. Call light with in reach, will continue to monitor closely. Patient endorsement report given to senior housekeeper nurse, all pertinent information discussed.
[2016-07-01] MEDS ORDERED: HYDROXYZINE PAMOATE 25 MG CAPSULE PO PRN (19:15)
--- NOTE | 2016-07-01 19:15 | NUR ---
Start of Shift Patient Received. Patient in activities room participating in group activities. Patient is a 25 year old female, admitted on 06/25/16 for Opiate and Benzo Dependence, under the care of Dr. Evans. Patient was placed on both Subutex and Ativan Tapers. Patient verbalizes no known allergies, wishes to be full code, following a regular diet, skin noted with tract kleber history, placed on both fall and seizure precautions. Patient denies past medical history. Per endorsement, patient was started on Bactrim DS for Cellulitis of the left inner thigh. Patient was given PRN Clonidine 0.1mg and medication noted to be effective. Patients last CIWA-1 and COWS -3. No PRN medications administered. All needs attended to promptly. Will continue plan of care as ordered.
[2016-07-01 20:20] VITALS: BP 117/68
[2016-07-01] MEDS ORDERED: LACTOBACILLUS RHAMNOSUS GG 1 EACH CAPSULE PO SCH (21:00)
[2016-07-01] MEDS: SULFAMETH/TRIMETH 800/160 MG TABLET PO SCH (21:39)
[2016-07-01] MEDS: QUETIAPINE FUMARATE 100 MG TABLET PO SCH (21:39)
[2016-07-01] MEDS: ASCORBIC ACID 250 MG TABLET PO SCH (22:24)
[2016-07-01] MEDS ORDERED: ASCORBIC ACID 250 MG TABLET ONE (22:31)
--- NOTE | 2016-07-02 00:33 | NUR ---
Vitals, CIWA, and COWS Patient Refused 0000 vitals prior to bed. Patient states "If Im sleeping please let me sleep." Patient noted in bed sleeping. Breathing even and non labored. No signs of pain or discomfort noted. Patients respirations noted at 14. CIWA and COWS not able to be completed as per order. Will continue to monitor. Addendum: 07/02/16 at 0033 by JETHRO CORDOVA LVN Amended: Links added.
--- NOTE | 2016-07-02 04:10 | NUR ---
Vitals, CIWA, and COWS Patient Refused 0400 vitals prior to bed. Patient states "If Im sleeping please let me sleep." Patient noted in bed sleeping. Breathing even and non labored. No signs of pain or discomfort noted. Patients respirations noted at 14. CIWA and COWS not able to be completed as per order. Will continue to monitor. Addendum: 07/02/16 at 0411 by JETHRO CORDOVA LVN Amended: Links added.
--- NOTE | 2016-07-02 07:11 | NUR ---
End of Shift Patient is in bed sleeping. Breathing even and non labored. No signs of pain or discomfort noted. Patient is a 25 year old female, admitted on 06/25/16 for Opiate and Benzo Dependence, under the care of Dr. Evans. Patient was placed on both Subutex and Ativan Tapers. Patient verbalizes no known allergies, wishes to be full code, following a regular diet, skin noted with tract kleber history, placed on both fall and seizure precautions. Patient denies past medical history. Patient last COWS noted at 3 and last CIWA noted at 1. All needs attended to promptly. Will endorse to continue plan of care as ordered.
[2016-07-02 08:00] VITALS: BP 115/76
--- NOTE | 2016-07-02 08:15 | NUR ---
START OF SHIFT: RECEIVED PT A/O X 4. SHE COMPLETED ATIVAN SUBUTEX TAPER. SHE REPORTS SHE IS GOING TO GROUPS. REDNESS NOTED TO L INNER THIGH. BACTRIM ORDERED FOR TX. PT STATES THE DETOX MEDS WERE EFFECTIVE. SHE STATES SHE IS MOTIVATED TOWARD RECOVERY. COWS 1 CIWA 0. WILL CONTINUE TO MONITOR AND OFFER SUPPORT.
[2016-07-02] MEDS: GABAPENTIN 300 MG CAPSULE PO SCH ×3 (09:06→20:27)
[2016-07-02] MEDS: DICYCLOMINE HCL 20 MG TABLET PO SCH ×3 (09:06→20:26)
[2016-07-02] MEDS: SULFAMETH/TRIMETH 800/160 MG TABLET PO SCH ×2 (09:06→20:27)
[2016-07-02] MEDS: FERROUS SULFATE 325 MG TABEC PO SCH ×3 (09:06→15:58)
[2016-07-02] MEDS: ASCORBIC ACID 250 MG TABLET PO SCH ×2 (09:07→20:27)
[2016-07-02] MEDS: MULTIVITAMINS,THERAPEUTIC TABLET PO SCH (09:07)
[2016-07-02] MEDS: LACTOBACILLUS RHAMNOSUS GG 1 EACH CAPSULE PO SCH ×2 (10:03→20:27)
[2016-07-02 12:00] VITALS: BP 117/71
[2016-07-02 16:00] VITALS: BP 118/78
--- NOTE | 2016-07-02 18:54 | NUR ---
END OF SHIFT: PT ATTENDED GROUPS AND INTERACTED WITH PEERS. TAPERS COMPLETED. LAST COWS 2 CIWA 1. SHE DENIES S/S OF W/D AND STATES THE DETOX MEDS WERE EFFECTIVE. NO PRNS GIVEN ON SHIFT. DISCHARGE PLANNING IN PROGRESS FOR 07/03. SHES STATES SHE FEELS READY TO MOVE FORWARD. BACTRIM CONTINUES FOR L THIGH CELLULITIS. WILL ENDORSE UDS COLLECTION FOR DISCHARGE TO ONCOMING NIGHT NURSE.
[2016-07-02] MEDS ORDERED: LACT1CAP57 PO (19:20)
[2016-07-02] MEDS ORDERED: ASCO250T5 PO (19:20)
[2016-07-02] MEDS ORDERED: Gabapentin PO (19:20)
[2016-07-02] MEDS ORDERED: DICY20TA28 PO (19:20)
[2016-07-02] MEDS ORDERED: FERR325T28 PO (19:20)
[2016-07-02] MEDS ORDERED: SULF1TAB3 PO (19:20)
[2016-07-02] MEDS ORDERED: HYDR-3895 PO (19:20)
[2016-07-02] MEDS ORDERED: DIPH50CA37 PO (19:20)
[2016-07-02 20:00] VITALS: BP 121/73
--- NOTE | 2016-07-02 20:00 | NUR ---
Start of Shift Pt is a 25 year old female admitted on 06/25/2016 for Opiate/Benzo Dependence, placed on 5 day Ativan and 5 day Subutex taper, completed. Pt reported using Heroin IV 2g/daily, Xanax 4-6mg 4-5 days a week PO, Cocaine IV 2/g daily and Ketamine IM 1gm 4-5 days a week. PMH: Pt denies any medical or Psych history. NKA, regular diet, fall/seizure precautions, full code. Pt states that she has had 8 seizures total. Full code. Upon assessment, respirations even and unlabored, denies SOB/chest pain, skin warm, moist and intact, bowel sounds active x4, abdomen soft. Pt is on Bactrim DS for Cellulitis of the left inner thigh. Safety measures in place, call light within reach, side rails up x2, bed locked and in low position. Will continue to monitor.
[2016-07-02] MEDS: QUETIAPINE FUMARATE 100 MG TABLET PO SCH (20:27)
[2016-07-02 21:35] LABS: *AMPHETAMINE, URINE NEGATIVE (NEGATIVE); *BARBITURATE, URINE NEGATIVE (NEGATIVE); *CANNABINOID, URINE NEGATIVE (NEGATIVE); *COCCAINE, URINE POSITIVE (NEGATIVE); *OPIATE, URINE NEGATIVE (NEGATIVE); *PHENCYCLIDINE SCREEN,URINE NEGATIVE (NEGATIVE)
--- NOTE | 2016-07-03 | NUR ---
Pt refused to be woken for 0000 VS COWS/CIWA assessment deferred d/t pt sleeping - to assess while pt is a wake as ordered. Pt is sleeping, no s/s of distress noted, respirations even and unlabored. Safety measures in place, call light within reach, side rails up x2, bed locked and in low position. Will continue to monitor.
--- NOTE | 2016-07-03 07:00 | NUR ---
End of Shift Pt is a 25 year old female admitted on 06/25/2016 for Opiate/Benzo Dependence, placed on 5 day Ativan and 5 day Subutex taper, completed, pt is scheduled for discharge today. Pt reported using Heroin IV 2g/daily, Xanax 4-6mg 4-5 days a week PO, Cocaine IV 2/g daily and Ketamine IM 1gm 4-5 days a week. PMH: Pt denies any medical or Psych history. NKA, regular diet, fall/seizure precautions, full code. Pt states that she has had 8 seizures total. Full code. Pt is on Bactrim DS for Cellulitis of the left inner thigh. During shift, scheduled medications administered, no PRN medications administered, COWS 2 and CIWA 1, VS stable, pt slept for 7 hours, intake of 1000 ml PO and voids x1. Safety measures in place, call light within reach, side rails up x2, bed locked and in low position. Endorsed to day shift nurse.
--- NOTE | 2016-07-03 07:42 | NUR ---
BEGINNING OF SHIFT Patient endorsement report received from warehouse supervisor 3rd shift nurse, all pertinent information discussed. Patient is a 25 year old Female admitted on 06/25/2016 with admitting Dx: Opiate/bzo dependence. Patient denies any past medical history. Patient with substance use history of: heroin 2 grams iv daily on/off for 10 years, cocaine 2 grams daily iv on/off for 12 years, Xanax 4-6mg 4 to 5 days per pweek on/off for 12 years, and ketamine 1 gram 4 to 5 days per week IM on/off for 8 years. Patient completed Subutex and Ativan taper as ordered, will monitor closely. Patient is scheduled [facility] be [facility]. As per warehouse supervisor 3rd shift patient slept for 7 hours, and received no PRNs as per warehouse supervisor 3rd shift.e. Patients last ciwa score of: 3 and last cow score of: 4. Patient received in bed with eyes closed respirations are even and unlabored. Responsive to verbal stimuli, educated regarding plan of care for the day and medication regimen, safety measures in place, call light with in reach, will continue to monitor closely.
[2016-07-03 08:01] VITALS: BP 128/84
--- NOTE | 2016-07-03 08:25 | NUR ---
DISCHARGE Patient was discharged and off the unit at 0825, prior to discharge patient educated and provided with teaching regarding all discharge instructions, with good verbal understanding. patient noted self motivated towards sobriety patient discharged to [facility]. patients vital signs were stable, no s/sx of withdrawal noted, home medications and instructions were placed in patients personal duffel bag
[2016-07-03] MEDS: GABAPENTIN 300 MG CAPSULE PO SCH (08:57)
[2016-07-03] MEDS: DICYCLOMINE HCL 20 MG TABLET PO SCH (08:57)
[2016-07-03] MEDS: FERROUS SULFATE 325 MG TABEC PO SCH (08:57)
[2016-07-03] MEDS: LACTOBACILLUS RHAMNOSUS GG 1 EACH CAPSULE PO SCH (08:57)
[2016-07-03] MEDS: SULFAMETH/TRIMETH 800/160 MG TABLET PO SCH (08:57)
[2016-07-03] MEDS: MULTIVITAMINS,THERAPEUTIC TABLET PO SCH (08:58)
[2016-07-03] MEDS: ASCORBIC ACID 250 MG TABLET PO SCH (08:58)
[2016-07-04 06:06] LABS: *CODEINE Positive (.); *HYDROMORPHONE Comment: (.); *OPIATES Comment: ng/mL (Cutoff=300)
[2016-07-04 08:29] LABS: *AMPHETAMINE Positive (.); *BENZODIAZEPINES Positive (.); *CANNABINOID (THC) Positive (.); *COCAINE Positive (.); *METHAMPHETAMINE Positive (.); *NORDIAZEPAM Negative (Cutoff=300); *OXAZEPAM Negative (Cutoff=300)
== END 2016-07-03 08:25 | disposition other institution (70) | DRG 895 ==
LOC: SRC 06-25 01:02
PROVIDERS: ADMIT Internal Medicine; ATTEND Internal Medicine
PROC: HZ2ZZZZ Detoxification Services for Substance Abuse Treatment (ICD-10-PCS; principal; 2016-06-25)
PROC: HZ31ZZZ Individual Counseling for Substance Abuse Treatment, Behavioral (ICD-10-PCS; 2016-06-28)
PROC: HZ41ZZZ Group Counseling for Substance Abuse Treatment, Behavioral (ICD-10-PCS; 2016-06-28)
DX: F11.23 Opioid dependence with withdrawal (principal); F13.230 Sedative, hypnotic or anxiolytic dependence with withdrawal, uncomplicated; F14.23 Cocaine dependence with withdrawal; D50.9 Iron deficiency anemia, unspecified; F16.10 Hallucinogen abuse, uncomplicated; F12.90 Cannabis use, unspecified, uncomplicated; F17.210 Nicotine dependence, cigarettes, uncomplicated; L08.9 Local infection of the skin and subcutaneous tissue, unspecified
CPT/HCPCS: 36415; 70030-TC; 80307; 80324; 80346; 80349; 80353; 80361; 83550; 83690; 83735; 84443; 84703; 85025; 86580; 86592; 86705; 86803; 87340; 87806; A4663; G6040-TC; J2550; Q0162; Q0163